=== PATIENT | male | born 2000 | race Caucasian/White ===

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

== ENCOUNTER 2021-01-29 19:13 | Emergency (ER) | payer OTHER ==
[~2021-01-29] VITALS: Ht 188 cm; Wt 79.4 kg
[~2021-01-29 19:13] MED LIST: CYCLOBENZAPRINE5 MG PO; TORADOL 10 MG T10 MG PO
[2021-01-29] MEDS ORDERED: IBUPROFEN 800800 M1 PO (20:05)
[2021-01-29] MEDS ORDERED: KEFLEX500 M1 PO (20:05)
[2021-01-29] MEDS ORDERED: BACTRIM DS TAB1 EACH PO (20:05)
[2021-01-29 20:16] VITALS: BP 122/64
== END 2021-01-29 20:16 | disposition home or self-care (01) ==
LOC: M.ERS 19:13
DX: L03.011 Cellulitis of right finger (principal); Z98.890 Other specified postprocedural states